=== PATIENT | female | born 1990 | race Caucasian/White ===

== ENCOUNTER 2021-04-19 16:50 | Emergency (ER) | payer OTHER ==
[2021-04-19 18:45] LABS: BILIRUBIN NEGATIVE (NEGATIVE); BLOOD NEGATIVE Ery/uL (NEGATIVE); CLARITY CLEAR (CLEAR); COLOR YELLOW (YELLOW); GLUCOSE (U) NORMAL (NORMAL); LEUKOCYTES NEGATIVE Leu/uL (NEGATIVE); NITRITE NEGATIVE (NEGATIVE); PROTEIN NEGATIVE (NEGATIVE); SPECIFIC GRAVITY <=1.005 (1.001-1.030); UROBILINOGEN 0.2 mg/dL (0.2-1.0); pH 6.5 (5.0-9.0)
[2021-04-19] MEDS ORDERED: BACLOFEN 10MG T10 MG PO (19:53)
[2021-04-19] MEDS ORDERED: NAPROXEN500 MG PO (19:53)
== END 2021-04-19 20:00 | disposition home or self-care (01) ==
LOC: FER 16:50
PROVIDERS: Nurse Practitioner Family
DX: S39.012A Strain of muscle, fascia and tendon of lower back, initial encounter (principal); Z88.0 Allergy status to penicillin; X50.9XXA Other and unspecified overexertion or strenuous movements or postures, initial encounter; Y93.89 Activity, other specified; Y92.89 Other specified places as the place of occurrence of the external cause; Y99.0 Civilian activity done for income or pay
CPT/HCPCS: 72100; 81003; 96372; J1100; J1885